=== PATIENT | female | born 2005 | race Caucasian/White ===

== ENCOUNTER 2025-01-23 18:06 | Emergency (ER) | payer OTHER ==
[~2025-01-23] VITALS: Ht 160 cm; Wt 50.8 kg
[2025-01-23 18:28] VITALS: BP 124/72; TEMP 98.3
[2025-01-23 18:57] VITALS: O2SAT 99
== END 2025-01-23 18:57 | disposition home or self-care (01) ==
LOC: ER 18:13
DX: S13.4XXA Sprain of ligaments of cervical spine, initial encounter (principal); V43.62XA Car passenger injured in collision with other type car in traffic accident, initial encounter; Y93.89 Activity, other specified; Y92.488 Other paved roadways as the place of occurrence of the external cause; Y99.8 Other external cause status